=== PATIENT | male | born 1985 | race American Indian/Alaskan Native ===

== ENCOUNTER 2017-03-13 03:42 | Emergency (ER) | payer OTHER ==
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
[2017-03-13 07:01] VITALS: TEMP 99.5
[2017-03-13 07:02] VITALS: BP 120/82; PULSE 88; RESP 18; O2SAT 96
== END 2017-03-13 05:58 | disposition home or self-care (01) ==
LOC: ED 03:42
DX: B34.9 Viral infection, unspecified (principal); F17.210 Nicotine dependence, cigarettes, uncomplicated

== ENCOUNTER 2017-11-11 04:27 | Emergency (ER) | payer MEDICAID, OTHER ==
[2017-11-11 04:47] VITALS: BMI 29.8
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
[2017-11-11 05:21] LABS: HEMOGLOBIN 12.6 g/dL (14.0-18.0); MEAN CELL VOLUME 74.3 fl (80.0-105.0); MEAN CORPUSCULAR HEMOGLOBIN 25.1 pg (25.0-35.0); MEAN CORPUSCULAR HGB CONC 33.9 g/dl (31.0-37.0); MEAN PLATELET VOLUME 9.4 fl (7.0-11.0); RBC 5.01 10^6/uL (3.5-6.1); RED CELL DISTRIBUTION WIDTH 15.3 % (11.5-14.5); WHITE BLOOD COUNT 10.2 10^3/ul (4.5-11.0)
[2017-11-11 05:36] LABS: ALB/GLOB RATIO 1.4 (1.1-1.8); ALBUMIN 4.4 g/dL (3.0-4.8); ALT/SGPT 19 U/L (7-56); AST/SGOT 33 U/L (17-59); BLOOD UREA NITROGEN 13 mg/dL (7-21); CALCIUM 9.1 mg/dL (8.4-10.5); GFR NON-AFRICAN AMERICAN > 60
[2017-11-11] MEDS ORDERED: Sodium Chloride 0.9% 1,000 ML IV STA (05:42)
[2017-11-11 05:47] LABS: TROPONIN I < 0.01 ng/mL
[2017-11-11 05:59] LABS: CK-MB 1.7 ng/mL (0.0-3.6)
[2017-11-11 06:14] LABS: BARBITURATES, UR NEGATIVE (NEGATIVE); BENZODIAZEPINES, UR NEGATIVE (NEGATIVE); OPIATES, UR NEGATIVE (NEGATIVE); PHENCYCLIDINE, UR NEGATIVE (NEGATIVE)
[2017-11-11 07:45] VITALS: RESP 17
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
[2017-11-11 09:00] VITALS: BP 124/60; PULSE 69; TEMP 97.8; O2SAT 98
--- NOTE | 2017-11-11 09:01 | CT ---
Date of service: 11/11/2017 PROCEDURE: CT HEAD WITHOUT CONTRAST. HISTORY: syncope COMPARISON: None available. TECHNIQUE: Axial computed tomography images were obtained through the head/brain without intravenous contrast. Radiation dose: Total exam DLP = 965 mGy-cm. This CT exam was performed using one or more of the following dose reduction techniques: Automated exposure control, adjustment of the mA and/or kV according to patient size, and/or use of iterative reconstruction technique. FINDINGS: HEMORRHAGE: No intracranial hemorrhage. BRAIN: No mass effect or edema. No atrophy or chronic microvascular ischemic changes. VENTRICLES: Unremarkable. No hydrocephalus. CALVARIUM: Unremarkable. PARANASAL SINUSES: Unremarkable as visualized. No significant inflammatory changes. MASTOID AIR CELLS: Unremarkable as visualized. No inflammatory changes. OTHER FINDINGS: The report concurs with the preliminary [facility] report IMPRESSION: No acute findings
--- NOTE | 2017-11-11 09:49 | RAD ---
Date of service: 11/11/2017 PROCEDURE: CHEST RADIOGRAPH, 1 VIEW HISTORY: syncope COMPARISON: None available. FINDINGS: LUNGS: Clear. PLEURA: No pneumothorax or pleural fluid seen. CARDIOVASCULAR: Normal. OSSEOUS STRUCTURES: No significant abnormalities. VISUALIZED UPPER ABDOMEN: Normal. OTHER FINDINGS: None. IMPRESSION: No active disease.
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
--- NOTE | 2017-11-11 20:56 | CARD ---
APPROVED REPORT Date of service: 11/11/2017 EKG Measurement Heart [id number] <Conclusion> Sinus rhythm with 1st degree AV block ST elevation, probably due to early repolarization Borderline ECG
== END 2017-11-11 09:27 | disposition short-term general hospital (02) ==
LOC: ED 04:27 → UNDOADMOB 06:19 → ERH 06:19
DX: R55 Syncope and collapse (principal)
CPT/HCPCS: 70450; 71045; 73130; 80053; 82550; 82553; 82948; 83615; 84484; 85027; 93005; 96360; 99285; G0480; J7030